=== PATIENT | female | born 1955 | race Caucasian/White ===

== ENCOUNTER → 2024-12-23 | Outpatient (CLI) | payer MEDICARE, SELFPAY ==
[2024-12-23 16:46] LABS: Amphetamine/Methamp Scrn,U Negative (Negative); Barbiturate Screen,Urine Negative (Negative); Benzodiazepines Screen,Urine Positive (Negative); Benzoylecgonine Screen, Ur Negative (Negative); Fentanyl Screen,Urine Negative (Negative); Opiate Screen,Urine Negative (Negative); THC Screen,Urine Negative (Negative)
== END | disposition home or self-care (01) ==
LOC: SLDO 15:18
PROVIDERS: PCP Family Medicine; Referring Provider Family Medicine; Visit Provider Family Medicine
DX: Z79.891 Long term (current) use of opiate analgesic (principal)
CPT/HCPCS: 80307

== ENCOUNTER → 2025-01-24 | Outpatient (CLI) | payer MEDICARE, SELFPAY ==
[2025-01-24 10:46] LABS: Basophils % (Auto) 1 % (0-2.5); Eosinophils % (Auto) 1 % (0-10); Hematocrit 35.5 % (36.0-46.0); Hemoglobin 10.9 g/dL (12.0-16.0); Immature Granulocytes % (Auto) 1 % (0-0); Immature Granulocytes Auto 0.02 Thou/mm3 (0.00-0.00); Lymphocytes % (Auto) 28 % (10-50); Mean Corpuscular HGB Conc 30.7 g/dl (31.0-37.0); Mean Corpuscular Hemoglobin 25.2 pg (25.0-35.0); Mean Corpuscular Volume 82 fL (80-100); Monocytes # (Auto) 0.2 Thou/mm3 (0.0-0.8); Monocytes % (Auto) 6 % (0-12); Neutrophils # (Auto) 2.2 Thou/mm3 (1.8-7.7); Neutrophils % (Auto) 64 % (37-80); Nucleated Red Blood Cell % 0 /100 WBC (0); Platelet Count 248 Thou/mm3 (140-440); RDW Standard Deviation 52.7 fL (36.4-46.3); Red Blood Count 4.32 Miln/mm3 (4.00-5.20); White Blood Count 3.5 Thou/mm3 (3.6-11.0)
[2025-01-24 11:06] LABS: Alanine Aminotransferase 16 U/L (10-49); Albumin, Serum 4.5 gm/dL (3.4-4.8); Alkaline Phosphatase 95 U/L (46-116); Anion Gap 9 (7-16); Aspartate Amino Transferase 21 U/L (0-34); BUN/Creatinine Ratio 13 Ratio (12-20); Bilirubin,Total 0.5 mg/dL (0.3-1.2); Blood Urea Nitrogen 13 mg/dL (9-23); Calcium 9.8 mg/dL (8.3-10.6); Calcium (Corrected) 9.8 mg/dL (8.5-10.1); Carbon Dioxide 26.4 mMol/L (20.0-31.0); Chloride 107 mMol/L (98-107); Globulin 2.3 gm/dL (2.3-3.5); Glucose 94 mg/dL (74-106); Osmolality,Calculated 283 (275-295); Potassium 4.4 mMol/L (3.4-5.1); Sodium 142 mMol/L (136-145); Thyroid Stimulating Hormone 1.81 uIU/mL (0.55-4.78); Total Protein 6.8 gm/dL (5.7-8.2); eGFR > 60 See Note
[2025-01-24 11:45] LABS: Benzodiazepines Screen,Urine Negative (Negative)
[2025-01-24 11:51] LABS: T4 (Thyroxine) 5.9 mcg/dL (4.5-10.9)
[2025-01-24 12:15] LABS: Follicle Stimulating Hormone 59.51 mIU/mL (See Note); Vitamin B12 205 pg/mL (211-911); Vitamin D 25 Hydroxy Total 9.4 ng/mL (7.3-40.2)
[2025-01-31 06:58] LABS: Estradiol, Ultrasensitive* <2 pg/mL; T3,Total* 73 ng/dL (76-181); Testosterone,Total* 15 ng/dL (2-45); Thyroglobulin Antibodies* <1 IU/mL (< OR = 1)
== END | disposition home or self-care (01) ==
LOC: COPL 09:30
PROVIDERS: PCP Family Medicine; Referring Provider Internal Medicine; Visit Provider Physician Assistant
DX: R42 Dizziness and giddiness (principal); D50.9 Iron deficiency anemia, unspecified; N95.1 Menopausal and female climacteric states; E34.9 Endocrine disorder, unspecified; E07.89 Other specified disorders of thyroid; R68.82 Decreased libido; R23.2 Flushing; N95.2 Postmenopausal atrophic vaginitis; R53.83 Other fatigue; Z13.228 Encounter for screening for other metabolic disorders; R73.9 Hyperglycemia, unspecified
CPT/HCPCS: 36415; 80053; 80307; 82306; 82607; 82670; 83001; 84403; 84436; 84443; 84480; 85025; 86800

== ENCOUNTER → 2025-05-12 | Outpatient (CLI) | payer MEDICARE, SELFPAY ==
[2025-05-12 09:54] LABS: Basophils % (Auto) 1 % (0-2.5); Eosinophils % (Auto) 1 % (0-10); Hematocrit 37.3 % (36.0-46.0); Hemoglobin 11.5 g/dL (12.0-16.0); Immature Granulocytes % (Auto) 1 % (0-0); Immature Granulocytes Auto 0.03 Thou/mm3 (0.00-0.00); Lymphocytes # (Auto) 1.1 Thou/mm3 (1.0-4.8); Lymphocytes % (Auto) 30 % (10-50); Mean Corpuscular HGB Conc 30.8 g/dl (31.0-37.0); Mean Corpuscular Hemoglobin 25.5 pg (25.0-35.0); Mean Corpuscular Volume 83 fL (80-100); Monocytes # (Auto) 0.3 Thou/mm3 (0.0-0.8); Monocytes % (Auto) 8 % (0-12); Neutrophils # (Auto) 2.1 Thou/mm3 (1.8-7.7); Neutrophils % (Auto) 59 % (37-80); Nucleated Red Blood Cell % 0 /100 WBC (0); Platelet Count 228 Thou/mm3 (140-440); RDW Standard Deviation 50.4 fL (36.4-46.3); Red Blood Count 4.51 Miln/mm3 (4.00-5.20); White Blood Count 3.5 Thou/mm3 (3.6-11.0)
[2025-05-12 10:04] LABS: Glucose Estimated Average 103 mg/dL (80-131); Hemoglobin A1C 5.2 % Hgb (4.8-6.0)
[2025-05-12 10:17] LABS: Alanine Aminotransferase 16 U/L (10-49); Albumin, Serum 4.5 gm/dL (3.4-4.8); Albumin/Globulin Ratio 1.7 (1.2-2.2); Alkaline Phosphatase 143 U/L (46-116); Anion Gap 11 (7-16); BUN/Creatinine Ratio 11 Ratio (12-20); Bilirubin,Total 1.2 mg/dL (0.3-1.2); Blood Urea Nitrogen 11 mg/dL (9-23); Calcium 9.4 mg/dL (8.3-10.6); Calcium (Corrected) 9.4 mg/dL (8.5-10.1); Carbon Dioxide 27.1 mMol/L (20.0-31.0); Cardiac Risk Estimate 1.9 RATIO (3.7-5.6); Chloride 104 mMol/L (98-107); Cholesterol 259 mg/dL (132-200); Globulin 2.6 gm/dL (2.3-3.5); Glucose 106 mg/dL (74-106); HDL Cholesterol 139 mg/dL (40-60); LDL Cholesterol,Calculated 102 mg/dL (0-130); Osmolality,Calculated 282 (275-295); Potassium 3.9 mMol/L (3.4-5.1); Sodium 142 mMol/L (136-145); Thyroid Stimulating Hormone 2.95 uIU/mL (0.55-4.78); Total Protein 7.1 gm/dL (5.7-8.2); Triglycerides 90 mg/dL (30-150); eGFR > 60 See Note
[2025-05-12 10:19] LABS: Follicle Stimulating Hormone 52.74 mIU/mL (See Note); Iron 39 mcg/dL (50-170); Percent Iron Saturation 13 % (20-55); Total Iron Binding Capacity 294 mcg/dL (250-425); Unsaturated Iron Binding 255 (225-295); Vitamin B12 697 pg/mL (211-911)
[2025-05-12 11:10] LABS: Collection Type, Urine Clean Catch
[2025-05-12 11:51] LABS: Bacteria,Urine Rare; Bilirubin,Urine Negative (Negative); Blood,Urine Negative (Negative); Clarity,Urine Turbid (Clear/Hazy); Color,Urine Yellow (Lt Yel-Yel); Culture Indicated,Urine Contaminated; Glucose, Urine Negative (Negative); Ketones,Urine Negative (Negative); Leukocyte Esterase,Urine Positive (Negative); Nitrite,Urine Positive (Negative); Protein,Urine Trace (Neg - Trace); RBC,Urine 5 /hpf (0-3); Specific Gravity,Urine 1.012 (1.001-1.035); Squamous Epithelial Cell,Urine 16 /hpf (0-5); Urobilinogen,Urine Negative mg/dL (0.0-1.0); WBC,Urine 42 /hpf (0-5)
[2025-05-23 07:01] LABS: Estradiol, Ultrasensitive* 8 pg/mL; Testosterone,Total* 245 ng/dL (2-45); Vitamin D, 25-OH, D2 <4 ng/mL; Vitamin D, 25-OH, D3 19 ng/mL; Vitamin D, 25-OH, Total 19 ng/mL (30-100)
== END | disposition home or self-care (01) ==
LOC: COPL 07:58
PROVIDERS: PCP Family Medicine; Referring Provider Internal Medicine; Visit Provider Physician Assistant
DX: E16.2 Hypoglycemia, unspecified (principal); D50.9 Iron deficiency anemia, unspecified; Z98.84 Bariatric surgery status; N95.1 Menopausal and female climacteric states
CPT/HCPCS: 36415; 80053; 80061; 81001; 82306; 82607; 82670; 83001; 83036; 83540; 83550; 84403; 84443; 85025

== ENCOUNTER → 2025-05-23 | Outpatient (CLI) | payer MEDICARE, SELFPAY ==
--- NOTE | 2025-05-23 13:30 | XR_ITS ---
Examination: Screening digital mammography, bilateral Computer aided detection 3-D breast Tomosynthesis, bilateral Date and time of exam: May 23, 2025 1324 hours Comparison June 19, 2022 INDICATIONS: Bilateral nipple disc, for 3 months FINDINGS: Indication: Screening Technique: Nonmagnified MLO, CC views of the breasts to been obtained, reconstructed from 3-D Tomosynthesis images. R2 computer aided detection program utilized for evaluation of suspicious masses and/or abnormal calcifications. 3-D Tomosynthesis images obtained. Findings: The breasts are heterogeneously dense, which may obscure small masses 5 mm circumscribed nodule inner right breast Implants appear intact Impression: BI-RADS Category 0: Incomplete: Need additional imaging evaluation Given the patient's presentation recommend bilateral breast sonography follow-up
== END | disposition home or self-care (01) ==
LOC: CDIM 13:03
PROVIDERS: PCP Physician Assistant; Referring Provider Physician Assistant; Visit Provider Physician Assistant
DX: Z12.31 Encounter for screening mammogram for malignant neoplasm of breast (principal); N63.10 Unspecified lump in the right breast, unspecified quadrant; R92.333 Mammographic heterogeneous density, bilateral breasts; Z98.82 Breast implant status
CPT/HCPCS: 77063; 77067

== ENCOUNTER → 2025-06-08 | Outpatient (CLI) | payer MEDICARE, SELFPAY ==
--- NOTE | 2025-06-08 15:45 | XR_ITS ---
Examination: Breast ultrasound complete, bilateral Date and time of exam: June 08, 2025, 1521 hours INDICATIONS: Mammogram May 23, 2025 5 mm circumscribed mass inner right breast, family history breast cancer Technique: Real-time grayscale ultrasonographic imaging bilateral breasts, including all 4 quadrants as well as nipple retroareolar and axillary regions. Findings: Sonographic images right breast 12:00 nodule 6 x 4 mm circumscribed Sonographic images left breast, no cystic or solid mass IMPRESSION: BI-RADS Category 2: Benign findings
== END | disposition home or self-care (01) ==
PROVIDERS: PCP Family Medicine; Referring Provider Physician Assistant; Visit Provider Physician Assistant
DX: N63.15 Unspecified lump in the right breast, overlapping quadrants (principal)
CPT/HCPCS: 76641

== ENCOUNTER 2025-06-28 13:58 | Emergency (ER) | payer MEDICARE, SELFPAY ==
[2025-06-28 14:00] VITALS: BMI 18.1
[2025-06-28 14:07] VITALS: BP 160/89; PULSE 123; RESP 18; TEMP 37.4; O2SAT 98
--- NOTE | 2025-06-28 14:19 | XR_ITS ---
Examination: CT brain head without contrast. 2-D sagittal coronal reconstructions Date and time of exam:June 28, 2025, 1603 hours Comparison November 05, 2021 CTDI: vol (mGy):45.7 DLP: (mGycm):942 Technique: Multiple CT axial sections of the brain have been obtained, 5 mm slice thickness. Contrast has not been administered. 2-D sagittal, coronal reconstructions have been obtained Low dose protocols were performed. One or more of the following dose reduction techniques were used; automated exposure control, adjustment of the mA and/or KV according to patient size, use of iterative reconstruction technique. Findings: No significant ventricular enlargement. Intra-axial or extra-axial hemorrhage density is not seen. No mass effect or midline shift Basal cisterns are not remarkable. Fourth ventricle is midline. Cranial vault intact. The sphenoid sinusitis Impression: Negative for acute hemorrhage, mass effect or midline shift
--- NOTE | 2025-06-28 14:19 | XR_ITS ---
Examination: CT pelvis without intravenous contrast. 2-D sagittal and coronal reconstructions. Date and time of exam:June 28, 2025, 1551 hours. INDICATIONS: Patient fell today with injury to the hips, hip pain. CTDI: vol (mGy) :6.79. DLP: (mGycm) : 209. Technique: Multiple 3 mm axial sections of the pelvis have been obtained with the 64 slice high resolution scanner. 2-D sagittal and coronal reconstructions. Low dose protocols were performed. One or more of the following dose reduction techniques were used; automated exposure control, adjustment of the mA and/or KV according to patient size, use of iterative reconstruction technique. Findings: Prominent osteopenia Lower lumbar fusion Iliac bones acetabular regions anterior rami intact Hips intact Old appearing fracture fifth sacral segment No pelvic hematoma IMPRESSION: No hip or pelvic fracture, suggest follow-up AP pelvis in 1 day if pain persists
--- NOTE | 2025-06-28 14:20 | XR_ITS ---
Examination: CT lumbar spine, without contrast. 2-D sagittal reconstructions. 2-D coronal reconstructions. 3-D reconstructions. Date and time of exam:June 28, 2025, 1551 hours INDICATIONS: Patient fell today with injury to the lower back, lower back pain. CTDI: vol (mGy):15.8. DLP: (mGycm):475. Technique: Multiple 1.25 mm axial sections of the lumbar spine without intravenous contrast. have been obtained. 2-D sagittal and coronal reconstructions have been obtained. 3-D reconstructions have been obtained. Low dose protocols were performed. One or more of the following dose reduction techniques were used; automated exposure control, adjustment of the mA and/or KV according to patient size, use of iterative reconstruction technique. Findings: Prominent osteopenia. Transpedicular lumbar fusion L4-S1 with anatomic alignment Advanced disc narrowing L1-L2, L2-L3 No lumbar fracture Lumbar pedicles, laminae transverse and posterior spinous processes intact No focal lumbar disc protrusion IMPRESSION: No acute lumbar fracture
--- NOTE | 2025-06-28 14:20 | PD.EDRME ---
Rapid Medical Screening Exam RME Arrival date/time: 06/28/25 13:58 70-year-old female presents to the emergency department today with sister patient reports she has been shaky and off balance ongoing x 3 months Chief Complaint: General Adult/Misc Complain Vital signs: Vital Signs Temperature 99.4 F 06/28/25 14:07 Pulse Rate 123 H 06/28/25 14:07 Respiratory Rate 18 06/28/25 14:07 Blood Pressure 160/89 H 06/28/25 14:07 Pulse Oximetry (%) 98 06/28/25 14:07 Oxygen Delivery Method Room Air 06/28/25 14:07
[2025-06-28 14:39] LABS: Basophils # (Auto) 0.0 Thou/mm3 (0.0-0.2); Basophils % (Auto) 1 % (0-2.5); Eosinophils # (Auto) 0.0 Thou/mm3 (0.0-0.5); Eosinophils % (Auto) 0 % (0-10); Hematocrit 36.2 % (36.0-46.0); Hemoglobin 11.3 g/dL (12.0-16.0); Immature Granulocytes Auto 0.02 Thou/mm3 (0.00-0.00); Lymphocytes # (Auto) 0.9 Thou/mm3 (1.0-4.8); Lymphocytes % (Auto) 12 % (10-50); Mean Corpuscular HGB Conc 31.2 g/dl (31.0-37.0); Mean Corpuscular Hemoglobin 26.5 pg (25.0-35.0); Mean Corpuscular Volume 85 fL (80-100); Monocytes # (Auto) 0.6 Thou/mm3 (0.0-0.8); Monocytes % (Auto) 9 % (0-12); Neutrophils # (Auto) 5.6 Thou/mm3 (1.8-7.7); Neutrophils % (Auto) 78 % (37-80); Nucleated Red Blood Cell # 0.00 Thou/mm3 (0.00-0.00); Nucleated Red Blood Cell % 0 /100 WBC (0); Platelet Count 190 Thou/mm3 (140-440); RDW Standard Deviation 63.2 fL (36.4-46.3); Red Blood Count 4.27 Miln/mm3 (4.00-5.20); White Blood Count 7.2 Thou/mm3 (3.6-11.0)
[2025-06-28 14:53] LABS: INR 1.0 (0.9-1.3); Partial Thromboplastin Time 25.0 Seconds (22.0-36.0); Prothrombin Time 11.1 Seconds (9.0-12.2)
[2025-06-28 14:55] LABS: B-Type Natriuretic Peptide < 20 pg/mL (0-100)
[2025-06-28 14:59] LABS: Alanine Aminotransferase 19 U/L (10-49); Albumin, Serum 4.4 gm/dL (3.4-4.8); Albumin/Globulin Ratio 1.6 (1.2-2.2); Alkaline Phosphatase 196 U/L (46-116); Anion Gap 15 (7-16); Aspartate Amino Transferase 33 U/L (0-34); BUN/Creatinine Ratio 13 Ratio (12-20); Bilirubin,Total 1.7 mg/dL (0.3-1.2); Blood Urea Nitrogen 16 mg/dL (9-23); Calcium 9.0 mg/dL (8.3-10.6); Calcium (Corrected) 9.0 mg/dL (8.5-10.1); Carbon Dioxide 21.2 mMol/L (20.0-31.0); Chloride 99 mMol/L (98-107); Creatinine (Component) 1.2 mg/dL (0.6-1.3); Estimated Creatinine Clearance 40.5 mL/min (>60); Free T4 (Free Thyroxine) 0.93 ng/dL (0.89-1.76); Globulin 2.8 gm/dL (2.3-3.5); Glucose 150 mg/dL (74-106); Magnesium 1.6 mg/dL (1.6-2.6); Osmolality,Calculated 274 (275-295); Potassium 5.0 mMol/L (3.4-5.1); Sodium 135 mMol/L (136-145); Thyroid Stimulating Hormone 1.41 uIU/mL (0.55-4.78); Total Protein 7.2 gm/dL (5.7-8.2); eGFR 49 See Note
[2025-06-28 15:03] LABS: Ammonia < 10 uMol/L (11-32)
[2025-06-28 15:14] LABS: Collection Type, Urine Clean Catch
[2025-06-28 15:23] LABS: Bacteria,Urine 4+; Bilirubin,Urine Negative (Negative); Blood,Urine Trace (Negative); Color,Urine Yellow (Lt Yel-Yel); Glucose, Urine Negative (Negative); Hyaline Casts,Urine < 1 /hpf (0-1); Ketones,Urine 2+ (Negative); Leukocyte Esterase,Urine Positive (Negative); Nitrite,Urine Negative (Negative); PH,Urine 5.5 (5.0-7.0); Protein,Urine 1+ (Neg - Trace); RBC,Urine 2 /hpf (0-3); Specific Gravity,Urine 1.019 (1.001-1.035); Squamous Epithelial Cell,Urine 12 /hpf (0-5); Urobilinogen,Urine Negative mg/dL (0.0-1.0); WBC,Urine 13 /hpf (0-5)
[2025-06-28 15:29] LABS: Clarity,Urine Hazy (Clear/Hazy)
[2025-06-28 15:32] LABS: Amphetamine/Methamp Scrn,U Negative (Negative); Barbiturate Screen,Urine Negative (Negative); Benzodiazepines Screen,Urine Positive (Negative); Benzoylecgonine Screen, Ur Negative (Negative); Fentanyl Screen,Urine Negative (Negative); Opiate Screen,Urine Negative (Negative); THC Screen,Urine Negative (Negative)
--- NOTE | 2025-06-28 15:37 | PC.NURSE ---
CALLED CT RE: PT WOULD BE TAKEN. HE IS NUMBER 3 IN LINE. PT INFORMED.
--- NOTE | 2025-06-28 18:45 | PC.NURSE ---
TALKED TO KHAI ABOUT SEEING PT. HE SAID TO PUT PT IN OLD TRIAGE AND HE WOULD REVIEW HER CHART AND SEE HER THERE. DONE.
--- NOTE | 2025-06-28 19:30 | PD.EDNEURO ---
Neuro Symptoms Deficit-RME/HPI General Chief Complaint: General Adult/Misc Complain Stated Complaint: SHAKING REALLY BAD; GOING ON FOR 2 MOS. Time Seen by Provider: 06/28/25 19:51 Arrival date/time: 06/28/25 13:58 70-year-old female who is brought in by her friend. She has had tremors for the last 2 to 3 months. She has had difficulty eating secondary to these tremors. She states she has had some frequent falls secondary to the tremors. She denies any facial droop, aphasia, or unilateral weakness. No vision changes. No dysarthria. She does not take any blood thinners. She has no history of stroke. She has no history of any parkinsonian disease. She takes a benzodiazepine at nighttime for sleep, she states this is temazepam 25 mg. She states she saw her primary care provider for this and was for 2 Dr. Perez with [facility]. He is a slitting and shipping supervisor in [place], [place]. That appointment is pending. Alcohol history is unclear, patient initially states she drinks once to twice a week and when she does it is 5-6 times. Her friend states she believes she drinks more. Patient later states she may drink every day to every other day. Patient has a history of gastric bypass in 2009. She has had C-sections in 1993 in 1995. No other surgeries. Limitations: no limitations RME / HPI RME / HPI Narrative: 06/28/25 13:58 70-year-old female presents to the emergency department today with sister patient reports she has been shaky and off balance ongoing x 3 months Related Data Home Medications ?Medication ?Instructions ?Recorded ?Confirmed desvenlafaxine 50 mg 75 mg PO QDAY 02/12/21 02/12/21 tablet,extended release 24 hr gabapentin 300 mg tablet 300 mg PO TID 02/12/21 02/12/21 hydroxyzine HCl 25 mg tablet 25 mg PO TID 02/12/21 02/12/21 trazodone 100 mg tablet 100 mg PO QDAY 02/12/21 02/12/21 Previous Rx's ?Medication ?Instructions ?Recorded cephalexin 500 mg capsule 500 mg PO QID #40 caps 02/12/21 hydrocodone 5 mg-acetaminophen 325 1 tab PO Q8H PRN pain #10 tabs 11/23/23 mg tablet Allergies Allergy/AdvReac Type Severity Reaction Status Date / Time cefazolin Allergy Severe RASH Verified 06/28/25 14:02 methocarbamol Allergy Severe HIVES, Verified 06/28/25 14:02 TROUBLE BREATHING Review of Systems Review of Systems Systems Reviewed: All systems reviewed, normal except as documented ED Exam General Limitations: Present no limitations General appearance: Present alert and in no apparent distress Head Head exam: Present atraumatic Eye Eye exam: Present normal appearance, PERRL and EOMI ENT ENT exam: Present normal exam, normal oropharynx and mucous membranes moist Neck Neck exam: Present normal inspection, full ROM and trachea midline Chest Chest inspection: Present normal inspection and symmetric chest wall rise Respiratory Respiratory exam: Present normal lung sounds bilaterally Cardiovascular Cardiovascular exam: Present regular rate, normal rhythm and normal heart sounds Abdominal Exam Abdominal exam: Present soft and normal bowel sounds Extremities Exam Extremities exam: Present normal inspection and full ROM Back Exam Back exam: Present normal inspection and full ROM Neurological Exam Neurological exam: Present alert, oriented X3, CN II-XII intact and other (Intention tremors are present.) Psychiatric Psychiatric exam: Present normal affect and normal mood Skin Skin exam: Present warm, dry, intact and normal color Course Quality Measures none Orders Category Date Time Status CT head/brain wo con Stat Exams 06/28/25 14:[address] lumbar spine wo con Stat Exams 06/28/25 14:[address] pelvis wo con Stat Exams 06/28/25 14:19 Completed Alcohol, Blood Medical Stat Lab 06/28/25 14:32 Completed Ammonia Stat Lab 06/28/25 14:32 Completed B-Type Natriuretic Peptide Stat Lab 06/28/25 14:32 Completed CBC Stat Lab 06/28/25 14:32 Completed Comprehensive Metabolic Panel Stat Lab 06/28/25 14:32 Completed Drug Screen,Urine Stat Lab 06/28/25 15:00 Completed Free T4 (Free Thyroxine) Stat Lab 06/28/25 14:32 Completed Magnesium Stat Lab 06/28/25 14:32 Completed Partial Thromboplastin Time Stat Lab 06/28/25 14:32 Completed Prothrombin Time with INR Stat Lab 06/28/25 14:32 Completed TSH [Thyroid Stimulating Hormone] Stat Lab 06/28/25 14:32 Completed Urinalysis Stat Lab 06/28/25 15:00 Completed Diazepam Inj [Valium Inj] Med 06/28/25 19:28 Discontinued 5 mg IVP X1 ONE Diazepam [Valium] Med 06/28/25 20:26 Once 5 mg PO X1 ONE Sodium Chloride 0.9% 1000 ml [Ns] 1,000 ml Med 06/28/25 19:28 Active IV 999 mls/hr Vital Signs Vital signs: Vital Signs Temperature 99.4 F 06/28/25 14:07 Pulse Rate 123 H 06/28/25 14:07 Respiratory Rate 18 06/28/25 14:07 Blood Pressure 160/89 H 06/28/25 14:07 Pulse Oximetry (%) 98 06/28/25 14:07 Oxygen Delivery Method Room Air 06/28/25 14:07 Neuro Symptoms / Deficit MDM Narrative MDM Narrative:: 06/28/25 13:58 70-year-old female who is brought in by her friend. She has had tremors for the last 2 to 3 months. She has had difficulty eating secondary to these tremors. She states she has had some frequent falls secondary to the tremors. She denies any facial droop, aphasia, or unilateral weakness. No vision changes. No dysarthria. She does not take any blood thinners. She has no history of stroke. She has no history of any parkinsonian disease. She takes a benzodiazepine at nighttime for sleep, she states this is temazepam 25 mg. She states she saw her primary care provider for this and was for 2 Dr. Perez with [facility]. He is a slitting and shipping supervisor in [place], [place]. That appointment is pending. Alcohol history is unclear, patient initially states she drinks once to twice a week and when she does it is 5-6 times. Her friend states she believes she drinks more. Patient later states she may drink every day to every other day. Patient has a history of gastric bypass in 2009. She has had C-sections in 1993 in 1995. No other surgeries. On exam, patient is nontoxic-appearing in no visible signs distress. When she initially arrived, she had a tachycardia 123 bpm. At the time of her visit her heart rate is now within normal limits. She has an intention tremor. Workup reveals no leukocytosis or anemia. Her glucose is 150, T. bili is 1.7. Alk phos 196. Metabolic panel otherwise unremarkable. Urinalysis reveals numerous leukocytes in addition to squamous cells. Likely contaminated sample. Urine drug screen is positive for benzodiazepines as consistent with her nighttime medication. Lumbar of the spine, pelvis, and head are unremarkable. Patient received a bolus of normal saline here in addition to 5 mg of Valium. We discussed her test results and tremors. We do believe the patient to be discharged from the ER but will need close outpatient follow-up for further workup and therapies. Patient was advised to decrease alcohol use slowly but do not stop this abruptly. She may also consider medical assistance with alcohol cessation if she chooses to discontinue drinking. Patient was advised to return here as needed for any worsening emergent changes. Patient data External records reviewed:: None Clinical information provided by:: none Social determinants that could affect healthcare access:: none Patient has the following chronic illnesses:: Alcohol abuse, insomnia How is presenting disease/condition affected by chronic disease/condition?: exacerbated by Evaluation data The following diagnostics were reviewed and interpreted by me:: lab results (Hyperglycemia with elevated liver function, otherwise unremarkable) and radiology exam(s) (CT of the head, pelvis, and lumbar spine are unremarkable for acute pathology.) Lab and/or radiology exams considered but not ordered:: n/a Interpretation Summary: Hyperglycemia with elevated liver function test Medications / Prescriptions Medications or Prescriptions considered but not ordered:: n/a Medication administrations:: Medication Administration History Diazepam (Diazepam 5 Mg Tablet) 5 mg PO X1 ONE Stop: 06/28/25 20:27 Discontinued Medications Diazepam (Diazepam Inj 5 Mg/Ml Vial 2 Ml) 5 mg IVP X1 ONE Stop: 06/28/25 19:29 Sodium Chloride (Ns) 1,000 mls @ 999 mls/hr IV .Q1H1M ONE Stop: 06/28/25 20:28 Last Admin: 06/28/25 19:57 Dose: 999 mls/hr Documented By: CANDIDO See above Consultations Consultation(s) initiated? (list below): No Diagnosis Neuro Differential Diagnosis: convulsions, peripheral neuropathy, multiple sclerosis and other (Alcohol withdrawal, benzodiazepine withdrawal, parkinsonian's) Most likely diagnosis given after review of the tests above:: Tremors Admission Indicated Admission indicated?: not indicated Admission Request Was there a request for admission?: No Disposition Plan Disposition Plan: Discharge Discharge Attestation Discharge Attestation: The patient and all family members were given an opportunity to ask questions and understood the discharge instructions. Discharge instructions specifically effects, indications for sooner follow up or return to the emergency department, and the expected course of current diagnosis. Patient condition: Stable Discharge Plan Plan Patient Disposition: HOME (Self Care) Patient condition on transfer: Stable Prescriptions/Referrals Prescriptions/Med Rec: No Action trazodone 100 mg Tablet 100 mg PO QDAY hydroxyzine HCl 25 mg Tablet 25 mg PO TID gabapentin 300 mg Tablet 300 mg PO TID desvenlafaxine 50 mg Tablet Extended Release 24 Hr 75 mg PO QDAY cephalexin 500 mg capsule 500 mg PO QID Qty: 40 0RF hydrocodone-acetaminophen 5-325 mg tablet 1 tab PO Q8H MDD 3 tabs PRN (Reason: pain) Qty: 10 0RF Referrals: Sugar Cazares MD [Primary Care Provider] - In 1 week Problem List Clinical Impression: Action tremor Patient/Caregiver Discharge Instructions Education Materials: Essential Tremor (ET), Functional Movement Disorders Additional Instructions: - It is important that you follow-up with your primary doctor. - Possibilities for your tremors include but are not limited to alcohol withdrawal, benzodiazepine withdrawal, parkinsonian disease, multiple sclerosis. - Please return as needed for any worsening or emergent changes. Print Language: Icelandic Stand Alone Forms: [facility] Award Info., Patient Portal Info Letter
[2025-06-28] MEDS: SODIUM CHLORIDE 0.9% 1000 ML 1,000 ML 999 ML IV (19:57)
[2025-06-28 20:05] VITALS: BP 146/90; PULSE 87; RESP 19; TEMP 37.2; O2SAT 98
[2025-06-28 20:24] LABS: Alcohol, Blood Medical < 3.0 mg/dL (0-10.0)
[2025-06-28] MEDS: DIAZEPAM 5 MG TABLET PO (20:36)
== END 2025-06-28 20:58 | disposition home or self-care (01) ==
PROVIDERS: Nurse Practitioner Primary Care; Physician Assistant Medical; Emergency Provider Emergency Medicine; PCP Family Medicine
DX: R25.1 Tremor, unspecified (principal); S79.912A Unspecified injury of left hip, initial encounter; S79.911A Unspecified injury of right hip, initial encounter; S39.92XA Unspecified injury of lower back, initial encounter; R29.6 Repeated falls; R73.9 Hyperglycemia, unspecified; W19.XXXA Unspecified fall, initial encounter
CPT/HCPCS: 36415; 70450; 72131; 72192; 80053; 80307; 80320; 81001; 82140; 83735; 83880; 84439; 84443; 85025; 85610; 85730; 96360; 99284; J7030; A9270; G0480

== ENCOUNTER 2025-10-21 09:33 | Emergency (ER) | payer MEDICARE, SELFPAY ==
[2025-10-21 09:39] VITALS: BP 142/86; PULSE 92; RESP 18; TEMP 36.6; O2SAT 100
[2025-10-21 09:40] VITALS: PULSE 90; RESP 18; O2SAT 98
--- NOTE | 2025-10-21 09:54 | XR_ITS ---
Examination: Bilateral hips, AP pelvis, 5 views Technique: AP, lateral views both hips, AP pelvis, 5 views Exam date and time: October 21, 2025, 1027 hours INDICATIONS: Patient fell last night with injury to the pelvis and hips, hip pain FINDINGS: Acute fracture right femoral neck with moderate offset Left hip bones of the pelvis intact IMPRESSION: Acute displaced right femoral neck fracture
[2025-10-21] MEDS: ONDANSETRON INJ 2 MG/ML INJ 2 ML 4 MG IVP (10:08)
[2025-10-21] MEDS: MORPHINE SULF INJ 4 MG/ML VIAL IVP ×2 (10:09→12:48)
[2025-10-21] MEDS: ACETAMINOPHEN IVPB 1,000 MG/100 ML VIAL 250 MG IV (10:12)
--- NOTE | 2025-10-21 10:27 | PC.NURSE ---
Pt BIBA from home. States she stripped over the wheel of the trash can last night. Neighbors helped her get back into her house. Although in a lot of pain, pt did not want to come in last night. But this morning still in a lot of pain and not able to walk. Pt's right hip in excruciating pain, even while not moving. Slight bulge at hip, possible external rotation however, patient unable to straighten leg with out terrible pain and is keeping it bent at the knee. Pt denies pain anywhere else, denies hitting her head, did state that she initially hit her left arm, but states it is not huting her at this time. Other than pain, pt's vitals are wnl with a slightly elevated BP, no other signs of distress at this time
[2025-10-21 11:10] LABS: Basophils # (Auto) 0.0 Thou/mm3 (0.0-0.2); Basophils % (Auto) 0 % (0-2.5); Eosinophils # (Auto) 0.0 Thou/mm3 (0.0-0.5); Eosinophils % (Auto) 0 % (0-10); Hematocrit 31.6 % (36.0-46.0); Hemoglobin 9.8 g/dL (12.0-16.0); Immature Granulocytes Auto 0.05 Thou/mm3 (0.00-0.00); Lymphocytes # (Auto) 0.5 Thou/mm3 (1.0-4.8); Lymphocytes % (Auto) 8 % (10-50); Mean Corpuscular HGB Conc 31.0 g/dl (31.0-37.0); Mean Corpuscular Hemoglobin 24.0 pg (25.0-35.0); Mean Corpuscular Volume 77 fL (80-100); Monocytes # (Auto) 0.5 Thou/mm3 (0.0-0.8); Monocytes % (Auto) 7 % (0-12); Neutrophils # (Auto) 5.8 Thou/mm3 (1.8-7.7); Neutrophils % (Auto) 84 % (37-80); Nucleated Red Blood Cell # 0.00 Thou/mm3 (0.00-0.00); Nucleated Red Blood Cell % 0 /100 WBC (0); Platelet Count 203 Thou/mm3 (140-440); RDW Standard Deviation 47.9 fL (36.4-46.3); Red Blood Count 4.09 Miln/mm3 (4.00-5.20); White Blood Count 6.9 Thou/mm3 (3.6-11.0)
--- NOTE | 2025-10-21 11:17 | PD.EDFALL ---
ED Fall Injury RME/HPI General Chief Complaint: Fall Stated Complaint: HIP PAIN Time Seen by Provider: 10/21/25 09:50 Arrival date/time: 10/21/25 09:33 RME / HPI RME / HPI Narrative: 70-year-old female presented via emergency medical services with right hip pain following a fall last night while taking out the garbage. She was unable to ambulate this morning due to pain. Fentanyl was administered en route with only mild improvement. Last oral intake was last night. Patient denies any significant past medical history. Related Data Home Medications ?Medication ?Instructions ?Recorded ?Confirmed desvenlafaxine 50 mg 75 mg PO QDAY 02/12/21 02/12/21 tablet,extended release 24 hr gabapentin 300 mg tablet 300 mg PO TID 02/12/21 02/12/21 hydroxyzine HCl 25 mg tablet 25 mg PO TID 02/12/21 02/12/21 trazodone 100 mg tablet 100 mg PO QDAY 02/12/21 02/12/21 Previous Rx's ?Medication ?Instructions ?Recorded cephalexin 500 mg capsule 500 mg PO QID #40 caps 02/12/21 hydrocodone 5 mg-acetaminophen 325 1 tab PO Q8H PRN pain #10 tabs 11/23/ mg tablet Allergies Allergy/AdvReac Type Severity Reaction Status Date / Time cefazolin Allergy Severe RASH Verified 06/28/25 14:02 methocarbamol Allergy Severe HIVES, Verified 06/28/25 14:02 TROUBLE BREATHING Review of Systems Review of Systems Systems Reviewed: All systems reviewed, normal except as documented Past Medical History Past Medical History PSYCHO/SOCIAL: Positive Depression Social History SMOKING STATUS: Never smoker SUBSTANCE USE: does not use ED Exam Narrative Physical exam: General: Appears uncomfortable, thin. Eyes: Appear normal with no scleral icterus. HENT: Atraumatic. Moist mucous membranes. Neck: Atraumatic, supple. Cardiac: Regular rate and rhythm with no murmurs heard. Respiratory: Clear to auscultation bilaterally no respiratory distress. Abdomen: soft nontender nondistended with no rebound or guarding noted. MS: Tenderness to right iliac crest/hip region. Shortening and external rotation noted to right lower extremity. Skin: No exanthems, no cyanosis, no diaphoresis. Neurologic: No altered mental status, speech is fluent. Psychological: Cooperative and participatory with examination. Course Course Course Narrative: Patient with right fracture I spoke with transfer nurse, ortho Dr. Mathis, and ED physician Dr. Barboza at [facility]. Discussed patients PMHx, HPI, ED course, exam findings, labs, and radiology results. Patient accepted for transfer. Quality Measures none Orders Category Date Time Status Referral - Hotel Sales Manager Stat Cons 10/21/25 11:10 Active XR hip BI w pelvis 2V Stat Exams 10/21/25 09:54 Completed CBC Stat Lab 10/21/25 10:53 Completed CMP [Comprehensive Metabolic Panel] Stat Lab 10/21/25 10:53 Completed Acetaminophen Ivpb [Ofirmev Inj] Med 10/21/25 09:54 Discontinued 1,000 mg in 100 ml IV NOW Morphine* Inj Med 10/21/25 09:54 Discontinued 4 mg IVP X1 ONE Morphine* Inj Med 10/21/25 12:42 Discontinued 4 mg IVP X1 ONE Ondansetron Inj [Zofran Inj] Med 10/21/25 09:54 Discontinued 4 mg IVP X1 ONE Vital Signs Vital signs: Vital Signs Temperature 98 F 10/21/25 09:39 Pulse Rate 92 10/21/25 09:39 Respiratory Rate 18 10/21/25 09:39 Blood Pressure 142/86 H 10/21/25 09:39 Pulse Oximetry (%) 100 10/21/25 09:39 Oxygen Delivery Method Room Air 10/21/25 09:39 Pulse ox is 100% on room air which is adequate. Fall MDM Narrative MDM Narrative:: This is a 70-year-old female presenting with right hip pain and inability to ambulate after a fall last night. She received fentanyl en route with only mild improvement. On examination, she appears uncomfortable and thin, with tenderness to the right iliac crest/hip region; heart, lung, and abdominal exams are normal. Given her age, mechanism of injury, and inability to ambulate, there is concern for right hip fracture with xray revealing same. Given lack of orthopedic coverage at this facility, will need to transfer for further care. Patient data External records reviewed:: [facility] previous records and None Clinical information provided by:: patient Social determinants that could affect healthcare access:: none Patient has the following chronic illnesses:: none How is presenting disease/condition affected by chronic disease/condition?: no chronic disease Evaluation data The following diagnostics were reviewed and interpreted by me:: lab results and radiology exam(s) Lab and/or radiology exams considered but not ordered:: none Interpretation Summary: as above Medications / Prescriptions Medications or Prescriptions considered but not ordered:: none Medication administrations:: Medication Administration History Discontinued Medications Acetaminophen (Ofirmev Inj) 1,000 mg in 100 mls @ 250 mls/hr IV NOW ONE Stop: 10/21/25 10:17 Last Infusion: 10/21/25 10:36 Dose: Infused Documented By: Admin: 10/21/25 10:12 Dose: 250 mls/hr Documented By: CS Morphine Sulfate (Morphine Sulf Inj 4 Mg/Ml Vial) 4 mg IVP X1 ONE Stop: 10/21/25 09:55 Last Admin: 10/21/25 10:09 Dose: 4 mg Documented By: CS Morphine Sulfate (Morphine Sulf Inj 4 Mg/Ml Vial) 4 mg IVP X1 ONE Stop: 10/21/25 12:43 Last Admin: 10/21/25 12:48 Dose: 4 mg Documented By: CS Ondansetron HCl (Ondansetron Inj 2 Mg/Ml Inj 2 Ml) 4 mg IVP X1 ONE; Protocol Stop: 10/21/25 09:55 Last Admin: 10/21/25 10:08 Dose: 4 mg Documented By: MORGAN See above Consultations Consultation(s) initiated? (list below): Yes Consultation #1 (Physician, Specialty, Details): See course Diagnosis Fall Differential Diagnosis: other Most likely diagnosis given after review of the tests above:: Right hip fracture Admission Indicated Admission indicated?: indicated Explain why admission is indicated or not indicated:: Transfer indicated Admission Request Was there a request for admission?: No Disposition Plan Disposition Plan: Transfer Discharge Plan Plan Patient Disposition: [facility] Pt Being Transferred to: [facility] Service Needed for Transfer: Orthopedics Discharge Disposition comment: Ortho Dr. Mathis and ED physician Dr. Barboza accepted the patient for txfer Prescriptions/Referrals Prescriptions/Med Rec: No Action trazodone 100 mg Tablet 100 mg PO QDAY hydroxyzine HCl 25 mg Tablet 25 mg PO TID gabapentin 300 mg Tablet 300 mg PO TID desvenlafaxine 50 mg Tablet Extended Release 24 Hr 75 mg PO QDAY cephalexin 500 mg capsule 500 mg PO QID Qty: 40 0RF hydrocodone-acetaminophen 5-325 mg tablet 1 tab PO Q8H MDD 3 tabs PRN (Reason: pain) Qty: 10 0RF Referrals: Sugar Cazares MD [Primary Care Provider, Family Practice] - In 1 week Problem List Clinical Impression: Fracture of right hip Patient/Caregiver Discharge Instructions Print Language: Chinese Stand Alone Forms: [facility]a Award Info., Patient Portal Info Letter
[2025-10-21 11:25] LABS: Carbon Dioxide 20.5 mMol/L (20.0-31.0); Chloride 105 mMol/L (98-107); Potassium 4.4 mMol/L (3.4-5.1); Sodium 139 mMol/L (136-145)
[2025-10-21 11:26] LABS: Alanine Aminotransferase 13 U/L (10-49); Albumin, Serum 4.7 gm/dL (3.4-4.8); Albumin/Globulin Ratio 2.1 (1.2-2.2); Alkaline Phosphatase 162 U/L (46-116); Anion Gap 14 (7-16); Aspartate Amino Transferase 22 U/L (0-34); BUN/Creatinine Ratio 19 Ratio (12-20); Bilirubin,Total 1.0 mg/dL (0.3-1.2); Blood Urea Nitrogen 15 mg/dL (9-23); Calcium 9.3 mg/dL (8.3-10.6); Calcium (Corrected) 9.3 mg/dL (8.5-10.1); Creatinine (Component) 0.8 mg/dL (0.6-1.3); Globulin 2.2 gm/dL (2.3-3.5); Glucose 123 mg/dL (74-106); Osmolality,Calculated 279 (275-295); Total Protein 6.9 gm/dL (5.7-8.2); eGFR > 60 See Note
--- NOTE | 2025-10-21 11:37 | PC.SS ---
Addendum entered by Staci Beach 10/21/25 12:30: SS follow up note; [facility] accepted patient, set up transportation for patient with [facility] for, 12:45. SS will update patients nurse and patient. SS was contacted by [facility] staff. accepting Dr. is Dr. Barboza and Ortho Dr. is Dr. Hansen. Original Note: Patient will need HLOC for Acute displaced right femoral neck fracture. Patient need Ortho surgeon. SS assisted with transfer placement. SS faxed out to the following hospitals: [facility]
[2025-10-21 12:06] VITALS: BP 159/82; PULSE 95; RESP 18; TEMP 36.6; O2SAT 98
--- NOTE | 2025-10-21 12:15 | PC.NURSE ---
Juan Pablo from [facility] called and stated that they are accepting this pt for ortho. Going ER to ER. Ortho Doc is Del, ER doc is Kia, nurse to give report to is [place] [phone].
--- NOTE | 2025-10-21 12:34 | PC.NURSE ---
Tried to give report to Susi, number stated that the person was unavailable and to try back another time. Will try back in 5 minutes.
--- NOTE | 2025-10-21 13:10 | PC.NURSE ---
Report Given to Hannah collins [facility]
== END 2025-10-21 12:59 | disposition short-term general hospital (02) ==
LOC: SERX 10:32
PROVIDERS: Emergency Provider Family Medicine; PCP Family Medicine
DX: S72.001A Fracture of unspecified part of neck of right femur, initial encounter for closed fracture (principal); W19.XXXA Unspecified fall, initial encounter
CPT/HCPCS: 36415; 73521; 80053; 85025; 96365; 96375; 96376; 99284; J0131; J2270; J2405